=== PATIENT | female | born 1995 | race African-American/Black ===

== ENCOUNTER 2023-01-14 11:16 | Emergency (ER) | payer MEDICAID ==
[~2023-01-14] VITALS: Ht 162.6 cm; Wt 79.4 kg
[2023-01-14 11:33] VITALS: BP 133/82
--- NOTE | 2023-01-14 12:47 | NUR ---
covid and flu [id number] and sent to lab
[2023-01-14] MEDS ORDERED: AMOX500C2 PO (13:12)
== END 2023-01-14 13:31 | disposition home or self-care (01) ==
LOC: ER 11:16
DX: J02.0 Streptococcal pharyngitis (principal); Z20.822 Contact with and (suspected) exposure to COVID-19
CPT/HCPCS: 99283; 87426; 87880; C9803; 86403-TC